=== PATIENT | male | born 1965 | race African-American/Black ===

== ENCOUNTER 2018-06-05 04:12 | Inpatient (IN) | payer OTHER ==
[2018-06-05] VITALS (7 sets, daily range): BP systolic 80–137; BP diastolic 49–80
[~2018-06-05] VITALS: Ht 177.8 cm; Wt 136.1 kg
--- NOTE | 2018-06-05 04:20 | NUR ---
ED Nurse Note: pt was brought in by ra 68 from home c/o chest pain walking from sleep non ratiating. hr 194 ekg=svt. AO4. NAD.
--- NOTE | 2018-06-05 04:25 | NUR ---
ED Nurse Note: IV access established. Labs collected; sent down to lab.
[2018-06-05] MEDS ORDERED: Adenosine 6mg/2ml Inj IVP ONE (04:30)
[2018-06-05 04:36] LABS: EOSINOPHILS % (AUTO) 1.1 % (0.0-3.0); HEMATOCRIT 56.8 % (42.0-52.0); LYMPHOCYTES % (AUTO) 43.2 % (20.0-45.0); MEAN CORPUSCULAR VOLUME 91 FL (80-99); MONOCYTES % (AUTO) 12.3 % (1.0-10.0); NEUTROPHILS % (AUTO) 42.4 % (45.0-75.0); PLATELET COUNT 337 K/UL (150-450); RED BLOOD COUNT 6.22 M/UL (4.70-6.10); RED CELL DISTRIBUTION WIDTH 13.8 % (11.6-14.8); WHITE BLOOD COUNT 16.7 K/UL (4.8-10.8)
[2018-06-05 04:38] LABS: HEMOGLOBIN 18.9 G/DL (14.2-18.0)
[2018-06-05] MEDS ORDERED: dilTIAZem HCl 25mg/5ml Inj IVP ONE ×2 (04:45→05:45)
[2018-06-05 04:48] LABS: ANION GAP 10 mmol/L (5-15); BLOOD UREA NITROGEN 16 mg/dL (7-18); CALCIUM 8.7 MG/DL (8.5-10.1); CARBON DIOXIDE 25 MMOL/L (21-32); CHLORIDE 106 MMOL/L (98-107); CREATININE 1.5 MG/DL (0.55-1.30); POTASSIUM 4.4 MMOL/L (3.5-5.1); SODIUM 141 MMOL/L (136-145)
[2018-06-05 05:01] LABS: ALANINE AMINOTRANSFERASE 47 U/L (12-78); ALBUMIN 3.3 G/DL (3.4-5.0); ALBUMIN/GLOBULIN RATIO 0.9 (1.0-2.7); ALKALINE PHOSPHATASE 108 U/L (46-116); ASPARTATE AMINO TRANSFERASE 32 U/L (15-37); BILIRUBIN,TOTAL 0.2 MG/DL (0.2-1.0); CREATINE KINASE 153 U/L (26-308)
--- NOTE | 2018-06-05 05:17 | Emergency Room Report ---
History of Present Illness General Chief Complaint: Chest Pain Source: Patient Present Illness HPI 53-year-old male presents ED for evaluation. Brought in by EMS. EMS states that patient is in SVT. Started this morning. Patient woke up with chest pain. Heart rate to the 190s. Patient given adenosine 6 mg then 12 mg without improvement. Patient also describes chest pain. Dull, 7 out of 10, nonradiating. Denies alcohol or drug use. Denies smoking. States that he takes a heart medication but does not know the name of it. States that this happened once before and he was given a shot. No other aggravating relieving factors. Denies any other associated symptoms Allergies: Coded Allergies: No Known Allergies (Unverified , 06/05/18) Patient History Past Medical History: HTN Past Surgical History: none Pertinent Family History: none Social History: Denies: smoking, alcohol use, drug use Immunizations: UTD Reviewed Nursing Documentation: PMH: Agreed; PSxH: Agreed Nursing Documentation-PMH Hx Hypertension: Yes Review of Systems All Other Systems: negative except mentioned in HPI Physical Exam Vital Signs Date Time Temp Pulse Resp B/P (MAP) Pulse Ox O2 Delivery O2 Flow Rate FiO2 06/05/18 04:16 98.1 198 18 98 Room Air 06/05/18 04:42 109/68 Sp02 EP Interpretation: reviewed, normal General Appearance: alert, GCS 15, non-toxic, mild distress, obese Head: normocephalic, atraumatic Eyes: bilateral eye normal inspection, bilateral eye PERRL ENT: hearing grossly normal, normal pharynx, no angioedema, normal voice Neck: full range of motion, supple/symm/no masses Respiratory: chest non-tender, lungs clear, normal breath sounds, speaking full sentences Cardiovascular #1: no edema, tachycardia Cardiovascular #2: 2+ carotid (R), 2+ carotid (L), 2+ radial (R), 2+ radial (L) , 2+ dorsalis pedis (R), 2+ dorsalis pedis (L) Gastrointestinal: normal bowel sounds, non tender, soft, non-distended, no guarding, no rebound Rectal: deferred Genitourinary: normal inspection, no CVA tenderness Musculoskeletal: back normal, gait/station normal, normal range of motion, non- tender Neurologic: alert, oriented x3, responsive, motor strength/tone normal, sensory intact, speech normal Psychiatric: judgement/insight normal, memory normal, mood/affect normal, no suicidal/homicidal ideation Reflexes: 3+ bicep (R), 3+ bicep (L), 3+ tricep (R), 3+ tricep (L), 3+ knee (R) , 3+ knee (L) Skin: normal color, no rash, warm/dry, well hydrated Lymphatic: no adenopathy Procedures Critical Care Time Critical Care Time i. I feel this is a highly complex case requiring extensive working including EKG/Rhythm strip, Xray/CT/US, Blood/urine lab work, repeat exams while in ED, and administration of strong opiates/narcotics for pain control, admission to hospital or close patient follow up. Total time: 45 min bedside evaluation and treatment excludes procedures (EKG). Reason for critical care: aflutter, hypotension Possible complications: hypotension, hypertension, VT, shock, arrhythmias, metabolic acidosis, end organ damage, respiratory failure. Interventions: labs, IVFs, EKG, CXR, adenosine, cardizem x 2, discussion with cardiology, aspirin. Course: Patient presenting with chest pain, tachycardic. Given adenosine 6 mg then 12 mg by EMS with no improvement. History of SVT. Given 12 mg of adenosine here without improvement. Discussed with Dr. Hou. Given 20 mg diltiazem with heart rate to the 150s. Became hypotensive. Placed in Trendelenburg and given IV fluid bolus with improvement. Given additional 50 mg of diltiazem with cardioversion achieved. Blood pressure improving with IV fluids. Given aspirin Consultations: nursing staff, EMS, family Performed by: Dr Hicks Tolerated well condition = serious j. because of unstable vital signs this patient had a condition that could potentially threaten life or limb. I feel this is a critical patient who required my full attention while patient was considered critical. Total Critical Care Time excluding procedures was greater than 35 minutes Medical Decision Making Diagnostic Impression: Primary Impression: Atrial flutter Qualified Codes: I48.92 - Unspecified atrial flutter Additional Impression: Chest pain Qualified Codes: R07.9 - Chest pain, unspecified ER Course Hospital Course 53 yo M presents with chest pain, tachycardic Differential diagnoses include: VT/unstable angina, contusion, muscle strain, PTX, rib fracture, pneumonia, Clinical course Patient placed on stretcher. on bus monitor which shows wide complex tachycardia. no identifable P waves Given 12 mg adenosine without affect Discussed with Dr Hou. more likely atrial flutter. 20mg Cardizem given with heart rate to the 150s. Became hypotensive labs reviewed- noted leukocytosis, hemoglobin/hematocrit ok, Cr 1.5, troponins 0.035 EKG - atrial flutter, no acute ischemic changes interpreted by me Chest x-ray- no acute process Patient placed in Trendelenburg and IV boluses continued. Pressure improved. Patient given second dose of Cardizem with cardioversion achieved. Blood pressure improving. Given aspirin. Case discussed with Dr. Hou and he agreed to accept the patient to his service for further care and support I. I feel this is a highly complex case requiring extensive working including EKG/Rhythm strip, Xray/CT/US, Blood/urine lab work, repeat exams while in ED, and administration of strong opiates/narcotics for pain control, admission to hospital or close patient follow up. Diagnosis - atrial flutter, chest pain admitted to telemetry in serious condition Labs Test 06/05/18 04:25 White Blood Count 16.7 K/UL (4.8-10.8) Red Blood Count 6.22 M/UL (4.70-6.10) Hemoglobin 18.9 G/DL (14.2-18.0) Hematocrit 56.8 % (42.0-52.0) Mean Corpuscular Volume 91 FL (80-99) Mean Corpuscular Hemoglobin 30.3 PG (27.0-31.0) Mean Corpuscular Hemoglobin Concent 33.3 G/DL (32.0-36.0) Red Cell Distribution Width 13.8 % (11.6-14.8) Platelet Count 337 K/UL (150-450) Mean Platelet Volume 7.1 FL (6.5-10.1) Neutrophils (%) (Auto) 42.4 % (45.0-75.0) Lymphocytes (%) (Auto) 43.2 % (20.0-45.0) Monocytes (%) (Auto) 12.3 % (1.0-10.0) Eosinophils (%) (Auto) 1.1 % (0.0-3.0) Basophils (%) (Auto) 1.0 % (0.0-2.0) Sodium Level 141 MMOL/L (136-145) Potassium Level 4.4 MMOL/L (3.5-5.1) Chloride Level 106 MMOL/L (98-107) Carbon Dioxide Level 25 MMOL/L (21-32) Anion Gap 10 mmol/L (5-15) Blood Urea Nitrogen 16 mg/dL (7-18) Creatinine 1.5 MG/DL (0.55-1.30) Estimat Glomerular Filtration Rate 49.0 mL/min (>60) Glucose Level 123 MG/DL (74-106) Calcium Level 8.7 MG/DL (8.5-10.1) Total Bilirubin 0.2 MG/DL (0.2-1.0) Aspartate Amino Transf (AST/SGOT) 32 U/L (15-37) Alanine Aminotransferase (ALT/SGPT) 47 U/L (12-78) Alkaline Phosphatase 108 U/L (46-116) Total Creatine Kinase 153 U/L (26-308) Creatine Kinase MB 2.0 NG/ML (0.0-3.6) Creatine Kinase MB Relative Index 1.3 Troponin I 0.035 ng/mL (0.000-0.056) Pro-B-Type Natriuretic Peptide 54 pg/mL (0-125) Total Protein 7.0 G/DL (6.4-8.2) Albumin 3.3 G/DL (3.4-5.0) Globulin 3.7 g/dL Albumin/Globulin Ratio 0.9 (1.0-2.7) EKG Diagnostic Results Rate: tachycardiac Rhythm: other - aflutter ST Segments: no acute changes ASA given to the pt in ED: Yes Rhythm Strip Diag. Results EP Interpretation: yes Rhythm: no PVC's, no ectopy Chest X-Ray Diagnostic Results Chest X-Ray Diagnostic Results : Chest X-Ray Ordered: Yes # of Views/Limited/Complete: 1 View Indication: Chest Pain EP Interpretation: Yes Interpretation: no consolidation, no effusion, no pneumothorax, no acute cardiopulmonary disease Impression: No acute disease Electronically Signed by: Electronically signed by Hansel Hicks MD Last Vital Signs Date Time Temp Pulse Resp B/P (MAP) Pulse Ox O2 Delivery O2 Flow Rate FiO2 06/05/18 04:42 170 109/68 1/19/19 04:16 98.1 18 98 Room Air Status: improved Disposition: ADMITTED INPATIENT Condition: Serious Scripts Unable to Obtain Active Prescriptions or Reported Meds Referrals: NOT CHOSEN IPA/,REFERRING (PCP) Hansel Hicks MD Jun 05, 2018 05:17
--- NOTE | 2018-06-05 06:02 | Diagnostic Imaging Report ---
EXAM: XR Chest, 1 View. CLINICAL HISTORY: CP TECHNIQUE: Frontal view of the chest. COMPARISON: No relevant prior studies available. FINDINGS: Lungs: Low lung volumes. Mild atelectasis seen in both lung bases. No definite airspace consolidation. Pleural spaces: No pneumothorax. Heart: Heart size normal. Mediastinum: No mediastinal widening or shift. Bones: Unremarkable. No acute fracture. IMPRESSION: Hypoinflated lungs without definite airspace consolidation.
--- NOTE | 2018-06-05 07:18 | NUR ---
HAND-OFF: Report given to BRENDA Espinoza. Pt in stable condition. Plan of care endorsed.
--- NOTE | 2018-06-05 07:26 | NUR ---
ED Nurse Note: received patient in bed, patient eyes closed, chest rise and fall, resting comfortably in bed, vss.
--- NOTE | 2018-06-05 07:45 | NUR ---
ED Nurse Note: urine was sent down to lab
[2018-06-05] MEDS ORDERED: LOSARTAN POTASS50 MG ORAL (07:55)
[2018-06-05] MEDS ORDERED: HYDROCHLOROTHIA25 MG ORAL (07:55)
[2018-06-05] MEDS ORDERED: ASPIRIN81 MG ORAL (07:55)
--- NOTE | 2018-06-05 07:56 | NUR ---
ED Nurse Note: med recon done. report given to Diego GUTIERREZ at 2E.
--- NOTE | 2018-06-05 08:19 | NUR ---
HAND-OFF: Report given to Diego GUTIERREZ. patient transferred to 220-1 with all of his belongings including his 1 black necklace 1 yellow necklace 1 stud earring 1 yellow bracelet, 1 cellphone, 1 black wallet with $29 howell, counted with Diego GUTIERREZ. applied tele monitor on the patient, provided socks for the patient. all the care endorsed to Diego GUTIERREZ
--- NOTE | 2018-06-05 08:23 | NUR ---
NURSE NOTES: received pt awake alert, no distress. denies chest pain. call light within reach. all belongings with the pt. aox 4. will monitor.
--- NOTE | 2018-06-05 08:24 | NUR ---
NURSE NOTES: pt denies drug/alcohol abuse, , pt hx of htn, and per pt he had cardiac cath before and pt states "everything was normal" pt states if he can go home today if possible.
--- NOTE | 2018-06-05 08:37 | NUR ---
NURSE NOTES: paged dr Hou for admission orders. awaiting call back. Addendum: 06/05/18 at 0955 by ROSMERY KEYS RN NURSE NOTES: included in the page relayed to Dr Hou re nsvt 10 beats, pt asymptomatic, denies palpitations/chest pain.
[2018-06-05] MEDS ORDERED: Aspirin Baby 81mg ORAL SCH (09:00)
[2018-06-05] MEDS: dilTIAZem HCl 60mg tab ORAL SCH ×2 (09:12→13:12)
--- NOTE | 2018-06-05 09:42 | NUR ---
CASE MANAGEMENT: INITIAL REVIEW 06/05/2018 53 YO M MARILYN FROM HOME CC: SHANE PMHx: HTN. SI: CP. SVT. T 98.1 HR 198 RR 18 B/P 109/68 SATS 98% ON RA WBC 16.7 HGB 18.9 HCT 56.8 CR 1.5 GLU 123 TROPONIN 0.035 IS:NS BOLUS X1 ADENOSINE IV X1 CARDIZEM IV X1 PATIENT ADMITTED TO TELE 06/05/2018 @ 0531 DCP: PATIENT TO DISCHARGED TO HOME ONCE MEDICALLY CLEARED. PLAN OF CARE: CARDIO EVAL Addendum: 06/05/18 at 1445 by Amanda Sosa CM INTERQUAL MET FOR INTERMEDIATE
[2018-06-05 13:18] LABS: EOSINOPHILS % (AUTO) 0.7 % (0.0-3.0); HEMATOCRIT 52.5 % (42.0-52.0); HEMOGLOBIN 17.6 G/DL (14.2-18.0); LYMPHOCYTES % (AUTO) 27.3 % (20.0-45.0); MEAN CORPUSCULAR VOLUME 91 FL (80-99); MONOCYTES % (AUTO) 13.5 % (1.0-10.0); NEUTROPHILS % (AUTO) 57.5 % (45.0-75.0); PLATELET COUNT 286 K/UL (150-450); RED BLOOD COUNT 5.76 M/UL (4.70-6.10); WHITE BLOOD COUNT 10.8 K/UL (4.8-10.8)
[2018-06-05 13:46] LABS: CHOLESTEROL 252 MG/DL (< 200); HDL CHOLESTEROL 37 MG/DL (40-60); TRIGLYCERIDES 154 MG/DL (30-150)
--- NOTE | 2018-06-05 14:08 | NUR ---
NURSE NOTES: paged dr Hou re uptrend of troponin today. pt denies chest pain/palpitation/dizziness. pt asymptomatic, sleeping, easily arousable. call light within reach. will monitor.
[2018-06-05] MEDS ORDERED: Heparin 5000 units/ml inj IV SCH (14:45)
[2018-06-05] MEDS ORDERED: Heparin 25,000u/D5W 500ml 500 ML IV SCH (14:45)
[2018-06-05] MEDS ORDERED: Metoprolol Tartrate 50mg tab ORAL SCH (14:45)
--- NOTE | 2018-06-05 15:16 | NUR ---
NURSE NOTES: pt refused heparin drip, heparin 4000 unit iv once and plavix once, dr Hou is aware (during Polo's rounds) of pt signing out. pt singed ama. risks and benefits explained pt still refused treatment multiple times. also explained risks and benefits. pt still refused. iv removed from left hand and from right ac. no bleeding. all belongings with the pt. Addendum: 06/05/18 at 1532 by ROSMERY KEYS RN arm band removed. David Bowensk aware. Addendum: 06/05/18 at 1547 by ROSMERY KEYS RN CORRECTION: PATIENT SIGNED AMA.
[2018-06-05] MEDS ORDERED: Metoprolol Tartrate 10 MG in D5W 55 ML IVPB ONE (15:30)
--- NOTE | 2018-06-05 17:30 | History and Physical Report ---
DATE OF ADMISSION: 06/05/2018 REASON FOR ADMISSION: Rapid supraventricular tachycardia. HISTORY: This 53-year-old male visiting from the [facility] had too much to eat last evening and developed palpitations with chest pain that woke him up from sleep. He came into the emergency room and was noted to have a heart rate of 190. The pain was dull and achy and has not resolved until ultimately his rapid heart rate was controlled. The case was discussed with the emergency room physician and the patient was given two doses of diltiazem intravenously as well as a fluid challenge for low range or drop in blood pressure. Ultimately sinus rhythm was restored. Since then the patient was admitted to the observation unit where he has had some episodes of nonsustained ventricular tachycardia and atrial ectopy, but no recurrent rapid SVT. His first troponin level was 0.035, but his second troponin level is now 20. The patient states that he has had palpitations and irregular heart beat in the past. He has not been fully compliant with medications. He had a cardiac catheterization in [place] several years ago that he describes as normal and not requiring any intervention. PAST MEDICAL HISTORY: Includes hypertension and hyperlipidemia. MEDICATIONS: Include aspirin, hydrochlorothiazide, and losartan. He has been recommended for a statin drug, but has not been compliant. SOCIAL HISTORY: Negative for smoking, alcohol, or substance abuse. SYSTEMIC REVIEW: Otherwise unremarkable. PHYSICAL EXAMINATION: GENERAL: He is moderately obese, presently denies any distress. VITAL SIGNS: Blood pressure 111/72, pulse 78, and respirations 18. NECK: Obese neck. LUNGS: Clear. CARDIAC: Regular rhythm and rate. Normal S1 and S2 with a fourth heart sound. ABDOMEN: Obese and soft with no bruits. EXTREMITIES: Without clubbing, cyanosis, or edema. DIAGNOSTIC DATA: EKG on presentation revealed supraventricular tachycardia likely atrial flutter at a rate of up to 190. Repeat EKG now revealed sinus rhythm, possible anteroseptal infarction, nonspecific ST change in the inferior leads. No ST elevation. IMPRESSION: Acute myocardial infarction, precipitated by rapid tachyarrhythmias. RECOMMENDATIONS: Cardiac monitoring. Bed rest. Beta blockade. Full anti-platelet and anticoagulation therapy. Initiation of statin drug. We will attempt to obtain old records, will likely require reassessment of coronary anatomy. The patient has been explained in detail the above. He is considering leaving the hospital now since he feels well. He clearly understands the diagnosis and has had prior cardiac workups. I have stressed that he should at least remain for the next 24 hours before without additional therapy and made it clear that he is at risk for sudden cardiac without appropriate treatment and monitoring. Stan Hou M.D. DR: JAY JOB#: [id number] CC:
[2018-06-05] MEDS ORDERED: Atorvastatin 80mg tab ORAL SCH (21:00)
[2018-06-06] MEDS ORDERED: Heparin 5000 units/ml inj SUBQ SCH (09:00)
--- NOTE | 2018-06-06 11:28 | NUR ---
CARDIOLOGY WENT TO PT'S ROOM HE WAS NOT THERE , ASKED CHARGE NURSE FAY : PT LEFT THE HOSPITAL AMA. CHARGE NURSE 2-E IS AWARE .
--- NOTE | 2018-06-07 11:58 | Discharge Summary ---
Discharge Summary Discharge Summary _ DATE OF ADMISSION: 06/05/2018 DATE OF DISCHARGE: 06/05/2018 Patient signed AGAINST MEDICAL ADVICE REASON FOR ADMISSION: 53 years old male with past medical history of hypertension , hyperlipidemia, visiting from [facility] [place], developed palpitation and chest pain that woke him from sleep. Patient came to emergency department for evaluation. Upon evaluation heart rate was 190. Chest pain described as dull and aching. Patient reported being noncompliant with medications. Patient reported cardiac catheterization in [place] few years ago , which he described as normal and not requiring any intervention. Troponin initially 0.035. EKG revealed atrial flutter with rapid ventricular response . Chest x-ray revealed no acute cardiopulmonary pathology. Laboratory workup revealed leukocytosis WBC 16.7, no fevers. BUN 16, creatinine 1.5. Glucose 123. Patient received intravenous diltiazem as well as fluid challenge for low blood pressure. Sinus rhythm was restored. Blood pressure improved. Aspirin provided. Patient admitted for further management to telemetry floor HOSPITAL COURSE: Patient admitted to telemetry floor. Second troponin -20.11. Lipid panel revealed elevated triglycerides 154 , elevated total cholesterol 252 , elevated LDL 193 and low HDL of 37. TSH was within normal limits. Patient started on heparin drip, antiplatelet therapy with Plavix and aspirin, beta-melissa and statin. Patient declined heparin drip. Patient decided to sign AGAINST MEDICAL ADVICE. The risks and consequences of signing AGAINST MEDICAL ADVICE were discussed with patient in detail. Patient clearly understood the diagnosis and that he had prior cardiac history. Patient was urged to stay at least for the next 24 hours and explained that he was at risk for sudden cardiac without appropriate treatment and monitoring. Patient verbalized understanding, nevertheless signed AMA form and left. FINAL DIAGNOSES: Acute myocardial infarction, precipitated by rapid tachyarrhythmia I have been assigned to dictate discharge summary for this account. I was not involved in the patient's management. Delphien Dunham NP Jun 07, 2018 11:58
--- NOTE | 2018-06-16 19:06 | Cardiology Report ---
APPROVED REPORT EKG Measurement Heart [id number] Normal sinus rhythm Anterior infarct, age undetermined Abnormal ECG
--- NOTE | 2018-06-29 10:00 | NUR ---
-* INSURANCE *-* ALL CLINICALS AND REVIEWS HAVE BEEN FAXED TO: [facility]:[place] REF# [id number] P:[phone] F:[phone]
--- NOTE | 2018-12-03 12:20 | Cardiology Report ---
APPROVED REPORT EKG Measurement Heart [id number] Supravantricular tachycardia Nonspecific intraventricular block Abnormal ECG
== END 2018-06-05 15:32 | disposition left against medical advice (07) | DRG 281 ==
LOC: EDBD 04:12 → EMR 05:03 → 2E 05:31 → EDBEDREQ 06:40
DX: I21.9 Acute myocardial infarction, unspecified (principal); I47.1 Supraventricular tachycardia; I10 Essential (primary) hypertension; E78.5 Hyperlipidemia, unspecified; Z79.82 Long term (current) use of aspirin
CPT/HCPCS: 36415; 71045; 80053; 80061; 80307; 82550; 82553; 83880; 84443; 84484; 85025; 93005; 96361; 96374; 96375; 99291